=== PATIENT | male | born 1995 | race Two or more races ===

== ENCOUNTER 2025-07-10 23:07 | Emergency (ER) | payer SELFPAY ==
[~2025-07-10] VITALS: Ht 182.9 cm; Wt 205.0 kg
[2025-07-10 23:49] VITALS: O2SAT 99
[2025-07-11] MEDS ORDERED: CHLO473M2 MT (00:47)
[2025-07-11] MEDS ORDERED: IBUP-2029 MT (00:47)
[2025-07-11] MEDS: ACETAMINOPHEN 500MG TABLET PO ONE (01:01)
[2025-07-11] MEDS: CHLORHEXIDINE GLUCONATE 0.12% MOUTHWASH UDC SSP SCH (01:02)
[2025-07-11] MEDS: TETANUS, DIPHTHERIA, PERTUSSIS VAC/PF 0.5ML (>10YR OLD) IM ONE (01:02)
[2025-07-11 01:08] VITALS: BP 129/79; PULSE 92; RESP 15; TEMP 36.2; O2SAT 98
== END 2025-07-11 01:13 | disposition home or self-care (01) ==
LOC: ER 23:57
DX: S00.83XA Contusion of other part of head, initial encounter (principal); S10.93XA Contusion of unspecified part of neck, initial encounter; M47.812 Spondylosis without myelopathy or radiculopathy, cervical region; M48.02 Spinal stenosis, cervical region; Y08.89XA Assault by other specified means, initial encounter; Y93.89 Activity, other specified; Y92.89 Other specified places as the place of occurrence of the external cause; Y99.8 Other external cause status
CPT/HCPCS: 99285; 70450; 70486; 72125; 90715; 90471; Z7610